=== PATIENT | male | born 1960 | race Caucasian/White ===

== ENCOUNTER → 2017-09-30 | Outpatient (CLI) | payer BC | LOC: BMCIMAGING 14:51 | PROVIDERS: ATTEND Family Medicine | DX: M25.512 Pain in left shoulder (principal); M47.894 Other spondylosis, thoracic region; M47.892 Other spondylosis, cervical region; M43.12 Spondylolisthesis, cervical region; M47.896 Other spondylosis, lumbar region; M43.14 Spondylolisthesis, thoracic region ==

== ENCOUNTER → 2017-12-25 | Outpatient (CLI) | payer BC | LOC: FIMAGING 08:03 | PROVIDERS: ATTEND Neurological Surgery | DX: M75.92 Shoulder lesion, unspecified, left shoulder (principal); M50.20 Other cervical disc displacement, unspecified cervical region; M25.78 Osteophyte, vertebrae; M99.71 Connective tissue and disc stenosis of intervertebral foramina of cervical region ==

== ENCOUNTER 2018-08-12 15:19 | Emergency (ER) | payer OTHER, MEDICAID ==
[2018-08-12 15:25] VITALS: BP 111/67
--- NOTE | 2018-08-12 15:50 | EDPHY ---
H & P Stated Complaint: Needs MD referral for workers comp. Time Seen by Provider: 08/12/18 15:49 - Personal History Current Tetanus Diphtheria and Acellular Pertussis (TDAP): Unsure - Medical/Surgical History Hx Asthma: No Hx Chronic Respiratory Disease: No Hx Diabetes: No Hx Cardiac Disease: No Hx Renal Disease: No Hx Cirrhosis: Yes Hx Alcoholism: No Hx HIV/AIDS: No Hx Splenectomy or Spleen Trauma: No Other PMH: Celiac, Cirrosis. Hearing sensitivity. Degenerative discs. - Social History Smoking Status: Current every day smoker Constitutional: Initial Vital Signs Temperature (C) 36.5 C 08/12/18 15:22 Heart Rate 71 08/12/18 15:22 Respiratory Rate 18 08/12/18 15:22 Blood Pressure 111/67 08/12/18 15:22 O2 Sat (%) 95 08/12/18 15:22 O2 Delivery Mode Room Air Allergies/Adverse Reactions: clarithromycin [From Biaxin] Allergy (Verified 08/12/18 15:25) Home Medications: Medication Instructions Recorded NK [No Known Home Meds] 08/12/18 Medical Decision Making ED Course/Re-evaluation: CHIEF COMPLAINT: Needs work comp referral HISTORY OF PRESENT ILLNESS: The patient is a 57 y/o complaining of neck pain and requesting assignment for a work comp doctor. 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 He is declining a physical exam and simply wants a workman's comp physician referral. REVIEW OF SYSTEMS: A comprehensive 10 system review of systems is otherwise negative aside from elements mentioned in the history of present illness and medical decision making. PHYSICAL EXAM: HR, BP, O2 Sat, RR. Temp noted General Appearance: Alert, well hydrated, appropriate, and non-toxic appearing. Musculoskeletal: Normal active ROM of all extremities, atraumatic. Neurological: Alert, appropriate, and interactive. The patient has normal DTRs and non-focal cranial nerves, motor, sensory, and cerebellar exam. Skin: No rashes, good turgor, no nodules on palpation. Past medical history: Celiac, cirrhosis, hearing sensitivity, degenerative discs. Past surgical history: Denies Family history: Denies Social history: Lives in [place], single, not employed DIAGNOSTICS/PROCEDURES/CRITICAL CARE TIME: Not indicated DIFFERENTIAL DIAGNOSIS: The differential diagnosis for the patient's back pain included but was not limited to musculoskeletal pain, epidural abscess, herniated disk, spinal fracture, and intra-abdominal causes including urinary system. MEDICAL DECISION MAKING: The patient is a 57 y/o male complaining of needing a workman's comp physician referral for neck pain that occurred 1 year ago after a work accident. He is declining a physical exam. I have advised him to follow up with a work comp physician. Return precautions provided; patient is comfortable with this plan. Departure - Departure Disposition: Home, Routine, Self-Care Clinical Impression: Neck pain, Worker's compensation claim administrative problem Condition: Good Instructions: Neck Pain (ED) Additional Instructions: 1. Follow up with a work comp physician. Referrals: Work Comp Referral [facility] [Outside] - As per Instructions Devorah Fox DO [Doctor of Osteopathy] - As per Instructions Report Scribed for: Jeremías Hoffman Report Scribed by: Marianna Drake Date of Report: 08/12/18 Time of Report: 15:58
== END 2018-08-12 16:08 | disposition home or self-care (01) ==
DX: Z76.89 Persons encountering health services in other specified circumstances (principal)